=== PATIENT | male | born 1945 | race Caucasian/White ===

== ENCOUNTER → 2020-09-14 13:34 | Outpatient (CLI) | payer MEDICARE, OTHER, SELFPAY ==
[2020-09-14 15:16] LABS: COVID19 -Nasal RAPID Negative (Negative)
== END ==
PROVIDERS: Visit Provider Physician Assistant
DX: Z01.812 Encounter for preprocedural laboratory examination (principal); Z20.822 Contact with and (suspected) exposure to COVID-19
CPT/HCPCS: 87635; C9803

== ENCOUNTER 2020-09-16 12:15 | Day surgery (SDC) | payer MEDICARE, OTHER, SELFPAY ==
[2020-09-16] VITALS (11 sets, daily range): BP systolic 99–155; BP diastolic 62–83; PULSE 52–69; RESP 14–20; TEMP 36.1–36.7; O2SAT 93–99; BMI 28.6
--- NOTE | 2020-09-16 | PATH_ITS ---
[facility] Accession Number: [id number] . 01 Material submitted: . esophagus - ESOPHAGEAL . 01 Clinical history: . A: R/O EOE . 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 Intraepithelial eosinophils are not increased. Negative for dysplasia and malignancy. MRV 09/18/2020 1313 Local . 02 Electronically signed: . Surinder Head MD, PhD, Pathologist NPI- [id number] . 01 Gross description: . ESOPHAGEAL: Received in formalin are 3 fragment(s) of mccormack, soft tissue measuring 0.2 x 0.2 x 0.1 cm to 0.1 x 0.1 x 0.1 cm submitted entirely in 1 cassette(s) /JES 09/17/2020 0635 Local . 02 Pathologist provided ICD-10: R13.10 . 02 CPT . 108235 Performed at: 01 [facility] [address] [facility], [place], [place] [id number] MD Matt Betancourt MD Phone: [phone] [facility]formed [facility]: [facility] [address] [place], [place] [id number] MD Marilee Salgado MD Phone: [phone]
[2020-09-16] MEDS: SODIUM CHLORIDE 0.9% 1,000 ML 84 ML IV (13:56)
--- NOTE | 2020-09-16 13:56 | PM.HP.1 ---
History of Present Illness History of Present Illness Date Patient Seen: 09/16/20 Chief complaint: SDC Narrative: Dysphagia with history of dilation of his Schatzki's ring. Patient History Medical History (Updated 09/16/20 @ 13:36 by Lucien Gupta RN) Diabetes Dysphagia Elevated PSA Hyperlipidemia Normal cardiac stress test Surgical History (Updated 09/16/20 @ 13:36 by Lucien Gupta RN) Hx of tonsillectomy Family & Social History Social History: household members none Tobacco & Substance use: Smoking Status Never smoker alcohol intake current alcohol intake frequency a few times a week Substance Use Type does not use Meds Home Medications and Allergies Home Medications Medication Instructions Recorded Confirmed Type Simvastatin (Zocor) 20 mg PO Q DAY #0 08/06/07 09/16/20 History aspirin 81 mg tablet 81 mg PO BEDTIME 09/16/20 09/16/20 History metformin 500 mg tablet 500 mg PO DAILY 09/16/20 09/16/20 History omeprazole 20 mg capsule,delayed 20 mg PO BEDTIME 09/16/20 09/16/20 History release Allergies Allergy/AdvReac Type Severity Reaction Status Date / Time ragweed pollen Allergy Verified 09/16/20 13:36 Exam Vital Signs (past 8 hours): - 09/16/20 13:40 Temperature 98.0 F Pulse Rate 66 Respiratory Rate 18 Blood Pressure 155/83 H Pulse Oximetry 96 Oxygen Delivery Method Room Air Oxygen Flow Rate 0 Narrative Exam Narrative: Oropharynx free of lesions Chest clear to auscultation percussion Cardiac exam reveals no S3 or murmur Assessment & Plan Assessment & Plan narrative: Dysphagia with need for follow-up dilation of Schatzki's ring. Risks, benefits, alternatives have been explained. Further recommendations will follow-up results of this study.
--- NOTE | 2020-09-16 13:57 | P.OP.ENDO_ITS ---
Operative Date/Time/Diagnoses Date of procedure: 09/16/20 Pre-op diagnosis: See indication and findings Procedure & Clinicians Study performed: EGD Indications: Dysphagia Surgeon: Sher Emmanuel Procedure Notes Procedure in detail: After informed consent was obtained patient was placed in left lateral decubitus position. The video upper scope was placed into the oropharynx with the patient's help swelled the esophagus. The esophagus stomach and duodenum were carefully examined. On withdrawal retroflexed view the GE junction was performed. The scope was removed. The patient tolerated procedure well. Blood loss none Complications none Sedation Total sedation time 13 minutes Versed 7 mg fentanyl 100 micro g IV titration Findings 1. Longitudinal furrows and concentric rings in the mid to distal esophagus. Biopsies taken to rule out eosinophilic esophagitis 2. Mild Schatzki's ring present at 40 cm. A 15-18 mm balloon was used for dilation. There was only slight tension on the balloon at 18 mm. 3. 4 cm hiatal hernia from 40-44 cm 4. Otherwise normal stomach and duodenum. I believe that he is having dysphagia more based on dysmotility and/or eosinophilic esophagitis. This Schatzki's ring was fairly wide open. We will merely await biopsies and, if necessary, get previous biopsies from the [facility].
[2020-09-16] MEDS: fentaNYL 250 MCG/5 ML INJ IV (14:24)
[2020-09-16] MEDS: MIDAZOLAM 5 MG/5 ML VIAL IV (14:30)
--- NOTE | 2020-09-16 16:07 | SUR.PHASEI ---
Report to MEIR Bhagat.
--- NOTE | 2020-09-16 16:27 | SUR.PHASEII ---
1603 Patient to OPD, flat affect, minimal response, answers with one word. When asked how he feels, he said '.' States that he doesn't like feeling out of control. Multiple attempts to reach Dr. Emmanuel - answering service dropped calls when able to go through. Minerva Wilhelm RN supervisor agency appointments standing by patient while attempting to reach the doctor. Frank Vincent RN also went to help with the patient. 1625 She cared for the patient previously and stated that he is coming out of the affect of the medication and feels that he is now ready to go home. She has assumed care.
--- NOTE | 2020-09-16 16:59 | SUR.PHASEII ---
pt was moving slower than on admit at discharge but was alert and oriented x 3. able to completely dress self , use cell phone and walk unassisted. answering all questions appropriately. reviewed discharge instructions and also instructed pt friend Sammy to that all post op instructions were in bright green envelope
== END 2020-09-16 16:45 | disposition home or self-care (01) ==
PROVIDERS: PCP Internal Medicine; Referring Provider Internal Medicine Gastroenterology; Visit Provider Internal Medicine Gastroenterology
PROC: 0DJ08ZZ Inspection of Upper Intestinal Tract, Via Natural or Artificial Opening Endoscopic (ICD-10-PCS; CPT 43235; principal; 2020-09-16 13:30)
DX: R13.10 Dysphagia, unspecified (principal); E78.5 Hyperlipidemia, unspecified; E11.9 Type 2 diabetes mellitus without complications; K44.9 Diaphragmatic hernia without obstruction or gangrene; K22.2 Esophageal obstruction
CPT/HCPCS: 43249; 43239; J2250; J3010